=== PATIENT | female | born 1995 | race African-American/Black ===

== ENCOUNTER 2018-07-28 00:59 | Emergency (ER) | payer OTHER ==
[~2018-07-28] VITALS: Ht 175.3 cm; Wt 102.1 kg
[2018-07-28 01:26] VITALS: BP 110/70
[2018-07-28] MEDS ORDERED: Bacitracin Oint UD TOPIC ONE (02:15)
[2018-07-28] MEDS ORDERED: Acetaminophen 500mg (ES) tab ORAL ONE (02:15)
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
[2018-07-28] MEDS ORDERED: IBUPROFEN600 MG ORAL (02:18)
[2018-07-28] MEDS ORDERED: TRAMADOL HCL50 MG ORAL (02:18)
[2018-07-28] MEDS ORDERED: ROBAXIN500 MG PO (02:18)
[2018-07-28 02:33] VITALS: BP 115/75
== END 2018-07-28 02:30 | disposition home or self-care (01) ==
LOC: EMR 02:00
DX: M54.2 Cervicalgia (principal); M25.512 Pain in left shoulder; M54.5 Low back pain; V43.52XA Car driver injured in collision with other type car in traffic accident, initial encounter; Y92.410 Unspecified street and highway as the place of occurrence of the external cause; R51 Headache; F17.200 Nicotine dependence, unspecified, uncomplicated
CPT/HCPCS: 99283